=== PATIENT | female | born 1935 | race Caucasian/White ===

== ENCOUNTER 2017-08-09 10:00 | Outpatient (CLI) | payer MEDICARE ==
--- NOTE | 2017-08-09 12:24 | RAD ---
LUMBAR SPINE TWO VIEWS: HISTORY: An 82-year-old female with a history of osteoporosis, spinal fracture, and prior surgery. COMPARISON: No prior radiographs available for comparison. FINDINGS: Pedicle screws are placed at L4 and L5 with mild anterolisthesis at L4 on L5. There is severe bone d emineralization. There is marked vertical height loss at T12, age indeterminate. A left compression screw is stabilizing the left hip. IMPRESSION: 1. Severe bone demineralization. 2. Pedicle screws stabilize L4 and L5. 3. Prominent vertical height loss of T12, evidence for a compression fracture, age indeterminate. 4. Minimal levoscoliosis of the upper lumbar, lower thoracic vertebral column. 5. Mild anterolisthesis of L4 on L5. POS: OFF
== END 2017-08-09 10:01 | disposition home or self-care (01) ==
LOC: TBSIIMAG 10:00
PROVIDERS: ATTEND Neurological Surgery
DX: M54.5 Low back pain (principal); M43.16 Spondylolisthesis, lumbar region
CPT/HCPCS: 72100